=== PATIENT | male | born 1950 | race Caucasian/White ===

== ENCOUNTER 2016-05-01 12:54 | Emergency (ER) | payer BC ==
[~2016-05-01] VITALS: Ht 175.3 cm; Wt 87.5 kg
[~2016-05-01 12:54] MED LIST: ALEN70TA2 PO; ALFU10TA30 PO; ASPEC81 PO; ASTIN/15 NAE; BACL10TA PO; CALC-5 PO; CETI10TA84 PO; CHOL100027 PO; CRAN500C2 PO; CYAN10004 PO; DEXT20CA PO; FENO145T26 PO; FLUT0.0529 NAE; GLC/500 PO; LEVO137T3 PO; LORA-741 PO; MAGN400T5 PO; MISCCAP80 PO; MULTTAB58 PO; OMEG10007 PO; OPTOPS OPB; PRS5 PO; PTDOPS OPB; [UNRECOGNIZED DRUG - OTHER] PO
[2016-05-01 13:03] VITALS: TEMP 36.7; Ht 175.3 cm; Wt 87.5 kg
[2016-05-01] MEDS ORDERED: ASPI81TA28 PO (13:48)
[2016-05-01] MEDS ORDERED: FLUT0.15 NAE (13:48)
[2016-05-01] MEDS ORDERED: FINA5TAB4 PO (13:48)
[2016-05-01] MEDS ORDERED: OPTOPS OPB (13:48)
[2016-05-01] MEDS ORDERED: FAMO20TA11 PO (13:48)
[2016-05-01] MEDS ORDERED: RILU1TAB PO (13:50)
--- NOTE | 2016-05-01 14:37 | EMERGENCY ROOM VISIT NOTE ---
History Report prepared by Troy: Ethel Waters Under the Supervision of: Dr. Sera Dominguez M.D. First contact with patient: 14:14 Chief Complaint: BLEEDING Stated Complaint: BLEEDING AROUND FEEDING TUBE Nursing Triage Summary: pt arrived bls with bleeding around peg tube that was placed last week. Hx of ALS. Pt reports sitting in a wheelchair with seatbelt today and noticed moderate amount of blood around tube after transfering from . Pt denies pain. History of Present Illness The patient is a 65 year old male who presents to the Emergency Room with complaints of constant bleeding from his peg tube beginning this morning. Per the patient's , the patient has ALS and last week was at [facility] where he had a peg tube in placed at the ALS clinic. The patient stated in the hospital for 2 days to check for infection and complications. The peg tube was put in place due to decreased respiratory capacity and increased weight loss. 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 After the patient was done teaching the seatbelt came off and blood was noticed on his shirt. The patient's noticed the bleeding was coming from the peg tube site. Since the peg tube insertion the patient has a home nurse and his feeding has been slowed which has helped. 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 Source of History: spouse/significant other Onset: today Position: abdomen (peg tube site) Quality: other (bleeding) Timing: constant Note: Patient has ALS, decreased respiratory capacity, and weight loss. Review of Systems See HPI for pertinent positives & negatives. A total of 10 systems reviewed and were otherwise negative. Past Medical & Surgical Medical Problems: (1) ALS (amyotrophic lateral sclerosis) (2) Ataxia (3) Diab Malathi Wo Compl, Type Ii Or Unspec Type, Not Uncntrld (4) Hyperlipidemia Nec/Nos (5) Hypertrophy (Benign) Of Prostate W Urinary Obst & Oth Luts Family History Patient reports no known family medical history. Social History Smoking Status: Never Smoker Smokeless Tobacco Use: No Alcohol Use: none Marital Status: Housing Status: lives with family Occupation Status: employed Current/Historical Medications Scheduled Alendronate Sodium (Fosamax), 70 MG PO WK Aspirin (Aspirin Ec), 81 MG PO DAILY Azelastine HCl (Astepro), 1 SPRAY BIANCA BID Baclofen (Lioresal), 10 MG PO TID Cetirizine (Zyrtec), 10 MG PO HS Dextromethorphan Hbr-Quinidine (Nuedexta), 1 TAB PO BID Famotidine (Pepcid), 20 MG PO BID Finasteride (Proscar), 5 MG PO QAM Finasteride (Proscar), 5 MG PO DAILY Fluticasone Propionate (Nasal) (Flonase Allergy Relief), 1 SPRAY BIANCA BID Levothyroxine Sodium (Levothyroxine Sodium), 1 TAB PO QAM Magnesium Oxide (Mag-Ox), 400 MG PO QAM Metformin Hcl (Glucophage), 500 MG PO BID Multiple Vitamin (Multivitamin), 1 TAB PO QAM Probiotic Product (Probiotic), 1 CAP PO QAM Riluzole (Riluzole), 1 TAB PO Q12 Scheduled PRN Cromolyn Sodium (Ophth) (Opticrom Oph), 1 DROPS OPB QID PRN for Itching Cromolyn Sodium 4% Oph (Opticrom Oph), 1-2 DROPS OPB QID PRN for ITCHING OR ALLERGIES Lorazepam (Ativan), 0.5-1 MG PO TID PRN for PRN Olopatadine Hydrochloride (Pataday), 1 DROP OPB DAILY PRN for ALLERGY EYE SYMPTOMS Allergies Coded Allergies: Atorvastatin (Verified Allergy, Intermediate, RAISED RASH, 05/01/16) Gemfibrozil (Verified Allergy, Unknown, RAISED RASH, 05/01/16) Shellfish (Verified Adverse Reaction, Unknown, GI UPSET, 05/01/16) Physical Exam Vital Signs Date Time Temp Pulse Resp B/P Pulse Ox O2 Delivery O2 Flow Rate FiO2 05/01/16 18:00 75 18 185/100 95 Room Air 05/01/16 17:22 75 18 176/106 94 Room Air 05/01/16 15:04 69 18 162/89 93 Room Air 05/01/16 13:03 36.7 68 16 166/102 94 Physical Exam Vital signs reviewed. General: Chronically ill appearing male, in no significant distress. J tube has small amount of active bleeding around site. HEENT: No scleral icterus, PERRLA, neck supple. Atraumatic. Cardiovascular: Regular rate and rhythm, no extra sounds. Pulmonary: Clear to auscultation bilaterally, normal work of breathing. Abdomen: Soft, nontender, nondistended, positive bowel sounds. Musculoskeletal: Atraumatic, no peripheral edema. Neurologic: Patient awake alert and oriented x 3. Skin: Warm, dry, no rash Medical Decision & Procedures ER Provider Diagnostic Interpretation: X-ray results as stated below per interpretation by me and the radiologist: J-TUBE CHECK CLINICAL HISTORY: J tube check, minor trauma. COMPARISON STUDY: Upper GI series January 19, 2012. TECHNIQUE: Supine AP radiographs of the abdomen and pelvis were obtained following injection of 50 cc of Optiray through the jejunostomy tube. FINDINGS: Jejunal opacification is noted. There is no extraluminal contrast. The caliber of opacified jejunal loops is normal. There are suspected gallstones within the gallbladder. There may be bilateral renal calculi. IMPRESSION: 1. Appropriately positioned jejunostomy tube. No contrast extravasation. 2. Bilateral nephrolithiasis. 3. Cholelithiasis. 4. No evidence of bowel obstruction. Electronically signed by: Phillip Nassar M.D. 05/01/2016 3:42 PM Dictated Date/Time: 05/01/2016 3:40 PM Laboratory Results 05/01/16 14:53 Red Blood Count 5.03, Mean Corpuscular Volume 84.3, Mean Corpuscular Hemoglobin 28.6, Mean Corpuscular Hemoglobin Concent 34.0, Mean Platelet Volume 10.8, Neutrophils (%) (Auto) 62.6, Lymphocytes (%) (Auto) 27.8, Monocytes (%) (Auto) 7.5, Eosinophils (%) (Auto) 1.5, Basophils (%) (Auto) 0.3, Neutrophils # (Auto) 6.47, Lymphocytes # (Auto) 2.87, Monocytes # (Auto) 0.78, Eosinophils # (Auto) 0.16, Basophils # (Auto) 0.03 Test 05/01/16 14:53 White Blood Count 10.34 K/uL (4.8-10.8) Red Blood Count 5.03 M/uL (4.7-6.1) Hemoglobin 14.4 g/dL (14.0-18.0) Hematocrit 42.4 % (42-52) Mean Corpuscular Volume 84.3 fL (80-100) Mean Corpuscular Hemoglobin 28.6 pg (25-34) Mean Corpuscular Hemoglobin Concent 34.0 g/dl (32-36) Platelet Count 312 K/uL (130-400) Mean Platelet Volume 10.8 fL (7.4-10.4) Neutrophils (%) (Auto) 62.6 % Lymphocytes (%) (Auto) 27.8 % Monocytes (%) (Auto) 7.5 % Eosinophils (%) (Auto) 1.5 % Basophils (%) (Auto) 0.3 % Neutrophils # (Auto) 6.47 K/uL (1.4-6.5) Lymphocytes # (Auto) 2.87 K/uL (1.2-3.4) Monocytes # (Auto) 0.78 K/uL (0.11-0.59) Eosinophils # (Auto) 0.16 K/uL (0-0.5) Basophils # (Auto) 0.03 K/uL (0-0.2) RDW Standard Deviation 43.8 fL (36.4-46.3) RDW Coefficient of Variation 14.2 % (11.5-14.5) Immature Granulocyte % (Auto) 0.3 % Immature Granulocyte # (Auto) 0.03 K/uL (0.00-0.02) Laboratory results per my review. ED Course 1425: Past medical records reviewed. The patient was evaluated in room B12. A complete history and physical examination was performed. 1722: Upon reevaluation, the patient appeared to have improvement of his symptoms. I discussed findings with him. He verbalized agreement of the treatment plan. He was discharged home. Medical Decision The patient is a 65 year old male who presents to the ED with complaints of bleeding from peg tube. Differentials include bowel obstruction, tube dislodgement, tube trauma, aspirin therapy. This patient was evaluated and appeared to be in no significant distress. Physical examination reveals some bleeding around the feeding tube site. There is no active hemorrhage. Patient's laboratory work reveals a stable H&H. A dry dressing was applied and x-ray was performed. The tube appears to be in good position. The patient had minimal oozing of blood during his stay in the ER. I suspect this is a bit of trauma from his wheelchair seatbelt. Patient and were advised of the findings. They can continue feedings as scheduled. He will stop his aspirin for the next several days. Patient will follow-up with his physician for reevaluation and return to the ER for worsening of symptoms or any medical concerns. Impression Primary Impression: Complication of feeding tube Scribe Attestation The scribe's documentation has been prepared under my direction and personally reviewed by me in its entirety. I confirm that the note above accurately reflects all work, treatment, procedures, and medical decision making performed by me. Departure Information Dispostion Home / Self-Care Referrals Bertin Hussein D.O. (PCP) Forms HOME CARE DOCUMENTATION FORM, IMPORTANT VISIT INFORMATION Patient Instructions My [facility] Additional Instructions Diagnosis: Complication of feeding tube, bleeding Stop your aspirin for the next several days Apply some light pressure and a dressing if bleeding recurs. Follow-up with your physician this week for reevaluation. Return to the ER for worsening of symptoms or any medical concerns.
[2016-05-01 15:06] LABS: BASO % 0.3 %; BASO ABS # 0.03 K/uL (0-0.2); COMPLETE YES; EOS % 1.5 %; HEMATOCRIT 42.4 % (42-52); IG% 0.3 %; LYMPH % 27.8 %; LYMPH ABS # 2.87 K/uL (1.2-3.4); MEAN CELL VOLUME 84.3 fL (80-100); MEAN CORPUSCULAR HEMOGLOBIN 28.6 pg (25-34); MEAN PLATELET VOLUME 10.8 fL (7.4-10.4); MONO % 7.5 %; NEUT % 62.6 %; PLATELET COUNT 312 K/uL (130-400); RED BLOOD COUNT 5.03 M/uL (4.7-6.1); WHITE BLOOD COUNT 10.34 K/uL (4.8-10.8)
--- NOTE | 2016-05-01 15:44 | DIAGNOSTIC IMAGING REPORT ---
J-TUBE CHECK CLINICAL HISTORY: J tube check, minor trauma. COMPARISON STUDY: Upper GI series January 19, 2012. TECHNIQUE: Supine AP radiographs of the abdomen and pelvis were obtained following injection of 50 cc of Optiray through the jejunostomy tube. FINDINGS: Jejunal opacification is noted. There is no extraluminal contrast. The caliber of opacified jejunal loops is normal. There are suspected gallstones within the gallbladder. There may be bilateral renal calculi. IMPRESSION: 1. Appropriately positioned jejunostomy tube. No contrast extravasation. 2. Bilateral nephrolithiasis. 3. Cholelithiasis. 4. No evidence of bowel obstruction. Electronically signed by: Phillip Nassar M.D. 05/01/2016 3:42 PM Dictated Date/Time: 05/01/2016 3:40 PM
[2016-05-01 18:00] VITALS: BP 185/100; PULSE 75; O2SAT 95
== END 2016-05-01 18:01 | disposition home or self-care (01) ==
LOC: EDBD 12:54 → C.EDB 12:54
DX: K94.21 Gastrostomy hemorrhage (principal); G12.21 Amyotrophic lateral sclerosis; E11.9 Type 2 diabetes mellitus without complications; N40.1 Benign prostatic hyperplasia with lower urinary tract symptoms; K80.20 Calculus of gallbladder without cholecystitis without obstruction; N20.0 Calculus of kidney